=== PATIENT | female | born 1960 | race Caucasian/White ===

== ENCOUNTER 2016-10-16 07:36 | Observation (INO) | payer OTHER ==
[~2016-10-16] VITALS: Ht 177.8 cm; Wt 85.3 kg
[2016-10-16] VITALS (15 sets, daily range): BP systolic 136–158; BP diastolic 72–81
[~2016-10-16 07:36] MED LIST: ALBUTEROL2 PUFFS/17 IN; ANTIBIOTIC UNKNOWN PO; BENZONATATE100 MG PO; CYCLOBENZ5 MG PO; DITROPAN 5MG TAB5 MG PO; FLEXERIL10 MG PO; NAPROXEN SODIU500 MG PO; NOMEDS *; SYNTHROID 0.0.125 MG PO; TYLENOL WITH CO1 TA1 PO; VOLTAREN50 MG PO
--- NOTE | 2016-10-16 12:08 | Anesthesia Record ---
Anesthesia Record Part I Total IV fluids: 1700 EBL (ml): 20 Urine Output: 0 B/P: 141/86 % SaO2: 98 Pulse: 88 Resps: 16 Temp: 97 Patient is: Drowsy, Nasal O2, Oral/nasal airway, Stable Stable to PACU at: 1200 at 1208
--- NOTE | 2016-10-16 12:09 | Anesthesia Record ---
Anesthesia Record Part II Discharge time: 1230 Destination: Second Floor PACU nurse assessment review? Yes Patient is: Stable Anesthesia complications? No at 1205
--- NOTE | 2016-10-16 13:10 | Operative Note ---
Thyroidectomy Date of procedure: 10/16/16 Surgeon: Serjio Whittington Preoperative diagnosis: 1. Left thyroid neoplasm 2. thyroiditis 3. Hypothyroidism Postoperative diagnosis: same Procedure performed: 1. Total left thyroid lobectomy 2. Removal of enlarged pyradimal lobe Anesthesia: General Description of procedure: The neck was prepped and draped. A minimally invasive thyroid incision was marked out, a nerve monitoring endotracheal tube was used. The markuut was incised and flaps were elevated. The sternomastoid muscles were identified on each side the strap muscles were identified and the strap muscles were divided. And retracted. There was some minimal nodularity in the RIGHT lobe of thyroid. There was a large 1.6 cm nodule in the LEFT lobe of thyroid. Dissection was commenced on the LEFT side. The superior vascular pedicle was mobilized doubly ligated and divided. The LEFT middle thyroid vein was divided. The LEFT inferior thyroid artery was identified as was the LEFT recurrent laryngeal nerve. The nerve was followed through to where it entered the larynx and stimulated on the positive fashion on several occasions. The LEFT inferior thyroid artery was doubly ligated and divided. The LEFT lobe was then from the trachea, Leigh's ligament was divided, and the isthmus was mobilized. There was a large pyramidal lobe it was mobilized and the vascular components were ligated superiorly. The LEFT lobe isthmus and pyramidal lobe were all carried incontinuity and submitted for frozen section analysis. 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 I should note that the the LEFT superior parathyroid gland was thought to be identified and it was biopsied but the pathologist reported adipose tissue. Accordingly the tissue was removed was not reimplanted. The wound was thoroughly irrigated all bleeding was stopped the strap muscles were repaired with 2-0 Vicryl a 10 mm Partha-Menendez drain was placed to suction. The subcutaneous layer, platysma were closed with 2-0 Vicryl. The skin was sealed with Dermabond. The drain was hooked to suction. Dressings were applied and the patient was sent to recovery in good general condition... EBL (ml): 8 at 1310
--- NOTE | 2016-10-16 16:28 | PHARMACY CLINIC NOTE ---
Patient Demographics Patient Demographics Admission date: 10/16/16 Date: 10/16/16 Time: 1628 Allergies Coded Allergies: prednisolone (Intermediate, I-HIVES 10/16/16) prednisone (Mild, 10/16/16) HEIGHT- FT: 5 IN: 10.00 K.333 VTE General Information Disclaimer The following section includes nursing documentation that has been pulled in for pharmacy review. VTE prophylaxis NQF [id number] VTE prophylaxis ordered? Yes Type of prophylaxis/treatment: KENZIE at 4860
--- OUTSIDE RECORDS SUMMARY | 2016-10-16 17:24 | External Medical Summary Rpt ---
Author Author [facility] Gonzalez, [employer] Address Unknown Phone Unavailable Results Calcium [Mass/volume] in Serum or Plasma Observa Value Referen Units Interpr Notes Date tion ce etation Range Calcium 8.5 - mg/dL Normal No Sep 03 [Mass/vol 10.1 informati 2016 2:34 ume] in on in PM Serum or source Plasma data Thyroxine (T4) free [Mass/volume] in Serum or Plasma Observa Value Referen Units Interpr Notes Date tion ce etation Range Thyroxine 0.76 - ng/dL Normal No Sep 03 (T4) 1.46 informati 2016 2:34 free on in PM [Mass/vol source ume] in data Serum or Plasma Thyrotropin [Units/volume] in Serum or Plasma Observa Value Referen Units Interpr Notes Date tion ce etation Range Thyrotrop 0.358 - uIU/ml No No Sep 03 in 3.740 informati informati 2016 2:34 [Units/vo on in on in PM lume] in source source Serum or data data Plasma Comprehensive metabolic 2000 panel in Serum or Plasma Observa Value Referen Units Interpr Notes Date tion ce etation Range Albumin/G 1.1 - 1.8 No Normal No August 01 lobulin informati informati 2016 8:40 [Mass on in on in AM ratio] in source source Serum or data data Plasma Albumin 3.4 - 5.0 gm/dL Normal No August 01 [Mass/vol informati 2016 8:40 ume] in on in AM Serum or source Plasma data Alkaline 46 - 116 U/L Normal No August 01 phosphata informati 2016 8:40 se on in AM [Enzymati source c data activity/ volume] in Serum or Plasma Bilirubin 0.2 - 1.0 mg/dL Normal No August 01 .total informati 2016 8:40 [Mass/vol on in AM ume] in source Serum or data Plasma Urea 7 - 18 mg/dL Normal No August 01 nitrogen informati 2016 8:40 [Mass/vol on in AM ume] in source Serum or data Plasma Calcium 8.5 - mg/dL Normal No August 01 [Mass/vol 10.1 informati 2016 8:40 ume] in on in AM Serum or source Plasma data Chloride 98 - 107 mmoL/L High No August 01 [Moles/vo informati 2016 8:40 lume] in on in AM Serum or source Plasma data Carbon 21.0 - mmoL/L Normal No August 01 dioxide, 32.0 informati 2016 8:40 total on in AM [Moles/vo source lume] in data Serum or Plasma Creatinin 0.55 - mg/dL Normal No August 01 e 1.02 informati 2016 8:40 [Mass/vol on in AM ume] in source Serum or data Plasma Estimated 59- ML/MIN No REFERENCE August 01 informati RANGE: 2017 8:40 glomerula on in >60 AM r source ML/MIN/1. filtratio data 73 SQUARE n rate METERSIf (GF this patient is -A merican, then multiply theresult by 1.210. Globulin 1.3 - 3.2 gm/dL Normal No August 01 [Mass/vol informati 2016 8:40 ume] in on in AM Serum source data Glucose 74 - 106 mg/dL Normal No August 01 [Mass/vol informati 2016 8:40 ume] in on in AM Serum or source Plasma data Potassium 3.5 - 5.1 mmoL/L Normal August 01 informati 2016 8:40 [Moles/vo on in AM lume] in source Serum or data Plasma Sodium 136 - 145 mmoL/L High No August 01 [Moles/vo informati 2016 8:40 lume] in on in AM Serum or source Plasma data Aspartate 15 - 37 U/L Low No August 01 informati 2016 8:40 aminotran on in AM sferase source [Enzymati data c activity/ volume] in Serum or Plasma Alanine 12 - 78 U/L Normal No August 01 aminotran informati 2016 8:40 sferase on in AM [Enzymati source c data activity/ volume] in Serum or Plasma Protein 6.4 - 8.2 gm/dL Normal No August 01 [Mass/vol informati 2016 8:40 ume] in on in AM Serum or source Plasma data Lipid 1996 panel in Serum or Plasma Observa Value Referen Units Interpr Notes Date tion ce etation Range Cholester < 200 mg/dL No No August 01 ol informati informati 2016 8:40 [Moles/vo on in on in AM lume] in source source Unspecifi data data ed specimen Cholester 40 - 60 MG/DL Normal No August 01 ol in HDL inform2016 8:40 on in AM [Mass/vol source ume] in data Serum or Plasma Cholester 0 - 130 mg/dL Normal No August 01 ol in LDL inform2016 8:40 on in AM [Mass/vol source ume] in data Serum or Plasma by calculati on Triglycer 30 - 200 mg/dL Normal No August 01 marco informati 2016 8:40 [Moles/vo on in AM lume] in source Serum or data Plasma Cholester 0 - 40 No Normal No August 01 ol in informati informati 2016 8:40 VLDL on in on in AM [Mass/vol source source ume] in data data Serum or Plasma Thyrotropin [Units/volume] in Serum or Plasma Observa Value Referen Units Interpr Notes Date tion ce etation Range Thyrotrop 0.358 - uIU/ml High No August 01 in 3.740 informati 2016 8:40 [Units/vo on in AM lume] in source Serum or data Plasma CBC W Auto Differential panel in Blood Observa Value Referen Units Interpr Notes Date tion ce etation Range Basophils 0 - 0.2 K/MM3 Normal No August 012016 8:40 [#/volume on in AM ] in source Blood by data Automated count Basophils 0.1 - 2.0 % Normal No August 01 informati 2016 8:40 leukocyte on in AM s in source Blood by data Automated count Eosinophi 0.0 - 0.4 K/mm3 Normal No August 01 ls informati 2016 8:40 [#/volume on in AM ] in source Blood by data Automated count Eosinophi 0.1 - % Normal No August 01 ls/100 12.0 informati 2016 8:40 leukocyte on in AM s in source Blood by data Automated count Granulocy 1.8 - 7.8 K/mm3 Normal No August 01 earl informati 2016 8:40 [#/volume on in AM ] in source Blood by data Automated count Granulocy 37.0 - % Normal No August 01 earl/100 80.0 informati 2016 8:40 leukocyte on in AM s in source Blood by data Automated count Hematocri 37.0 - % Normal No August 01 t [Volume 47.0 informati 2016 8:40 on in AM Fraction] source of Blood data Hemoglobi 12.2 - g/dL Normal No August 01 n 16.2 informati 2016 8:40 [Mass/vol on in AM ume] in source Blood data Lymphocyt 0.7 - 4.5 K/mm3 Normal No August 01 es informati 2016 8:40 [#/volume on in AM ] in source Unspecifi data ed specimen by Automated count Lymphocyt 10 - 50.0 % Normal No August 01 es informati 2016 8:40 [#/volume on in AM ] in source Unspecifi data ed specimen by Automated count Erythrocy 27 - 31.2 pg High No August 01 te mean informati 2016 8:40 corpuscul on in AM ar source hemoglobi data n [Entitic mass] Erythrocy 31.8 - g/dl Normal No August 01 te mean 35.4 informati 2016 8:40 corpuscul on in AM ar source hemoglobi data n concentra tion [Mass/vol ume] by Automated count Erythrocy 82.2 - fl High No August 01 te mean 97.8 informati 2016 8:40 corpuscul on in AM ar volume source [Entitic data volume] by Automated count Monocytes 0.1 - 1.0 K/mm3 Normal No August 01 informati 2016 8:40 [#/volume on in AM ] in source Blood by data Automated count Monocytes 1.7 - 9.3 % Normal No August 01 /100 informati 2016 8:40 leukocyte on in AM s in source Blood by data Automated count Platelet 7.4 - fl Low No August 01 mean 10.4 informati 2017 8:40 volume on in AM [Entitic source volume] data in Blood by Automated count Platelets 142 - 424 K/mm3 Normal No August 01 informati 2016 8:40 [#/volume on in AM ] in source Blood data Erythrocy 4.2 - 5.4 M/mm3 Normal No August 01 earl informati 2016 8:40 [#/volume on in AM ] in source Amniotic data fluid Erythrocy 11.5 - % Normal No August 01 te 17.5 informati 2016 8:40 distribut on in AM ion width source [Entitic data volume] by Automated count Leukocyte 4.8 - K/MM3 Normal No August 01 s 10.8 informati 2017 8:40 [#/volume on in AM ] in source Blood data
--- OUTSIDE RECORDS SUMMARY | 2016-10-16 17:24 | External Medical Summary Rpt ---
Author Author [employer] Organization [employer] Address Unknown Phone Unavailable Purpose Continuity of Care Document - through 2016
--- OUTSIDE RECORDS SUMMARY | 2016-10-16 17:24 | External Medical Summary Rpt ---
Demographics Preferred Language Nepali Marital Status Unknown Protestant Affiliation Unknown Race Unknown Ethnic Group Unknown Author Author [facility] Address Unknown Phone Immunization No patient found.
--- OUTSIDE RECORDS SUMMARY | 2016-10-16 17:24 | External Medical Summary Rpt ---
Author Author [facility] Address Unknown Phone [email or web address] Purpose Continuity of Care Document - 08-01-2016 through 2016 Problems Code Diagnosis DOS Provider Status B34.9 VIRAL INFECTION, UNSPECIFIED E86.0 DEHYDRATION M62.830 MUSCLE SPASM OF BACK Z53.20 PROC/TRTMT NOT CRD OUT BEC PT DECISION FOR UNSP REASONS
--- OUTSIDE RECORDS SUMMARY | 2016-10-16 17:24 | External Medical Summary Rpt ---
Demographics Preferred Language Welsh Marital Status Unknown Yarsanism Affiliation Unknown Race Unknown Ethnic Group Unknown Author Author C[facility]IDO Address Unknown Phone Immunization No patient found.
--- OUTSIDE RECORDS SUMMARY | 2016-10-16 17:24 | External Medical Summary Rpt ---
Author Author CANDIDO Address Unknown Phone [email or web address] Purpose Continuity of Care Document - 08-01-2016 through 2016 Problems Code Diagnosis DOS Provider Status B34.9 VIRAL INFECTION, UNSPECIFIED E86.0 DEHYDRATION M62.830 MUSCLE SPASM OF BACK Z53.20 PROC/TRTMT NOT CRD OUT BEC PT DECISION FOR UNSP REASONS
[2016-10-17 00:31] VITALS: BP 119/71
[2016-10-17 04:27] VITALS: BP 150/82
[2016-10-17 08:00] VITALS: BP 136/71
[2016-10-17 10:00] VITALS: BP 132/67
--- NOTE | 2016-10-29 12:56 | DISCHARGE SUMMARY STANDARD ---
Discharge Summary ([facility]2) Date of admission: 10/16/16 Date of discharge: 10/17/16 Problem List: 1. Thyroid neoplasm History of present illness: Patient diagnosed with thyroid neoplasm and hypothyroidism. Follicular neoplasm thyroid. Total LEFT thyroid lobectomy performed Hospital Course: Surgery performed on October 16 2016, discharged home with thyroidectomy instructions on October 17, 2016. Discharge medications: Continue taking these medications: Levothyroxine Sodium (Synthroid 0.125MG) 125 MCG TABLET 0.125 MILLIGRAM ORAL DAILY Oxybutynin Chloride (Ditropan 5MG Tab) 5 MG TABLET 5 MILLIGRAM ORAL THREE TIMES A DAY Start taking the following new medications: HYDROCODONE/ACETAMINOPHEN (Reno 5-325 Tablet) 1 EACH TABLET 1 TABLET ORAL EVERY 6 HOURS NEEDED as needed for PAIN Qty = 30 No Refills Levothyroxine Sod (Synthroid) 150 MCG TABLET 0.15 MILLIGRAM NASOGASTRIC TUBE DAILY Days = 30 Refills = 3 CALCIUM CARBONATE/VITAMIN D3 (Caltrate 600 + D Tablet) 1 EACH TABLET 1 TABLET ORAL THREE TIMES A DAY Days = 14 No Refills Disposition: Home. To follow-up in one week at 2583
--- NOTE | 2016-10-29 12:56 | DISCHARGE SUMMARY STANDARD ---
Discharge Summary ([facility]2) Date of admission: 10/16/16 Date of discharge: 10/17/16 Problem List: 1. Thyroid neoplasm History of present illness: Patient diagnosed with thyroid neoplasm and hypothyroidism. Follicular neoplasm thyroid. Total LEFT thyroid lobectomy performed Hospital Course: Surgery performed on October 16 2016, discharged home with thyroidectomy instructions on October 17, 2016. Discharge medications: Continue taking these medications: Levothyroxine Sodium (Synthroid 0.125MG) 125 MCG TABLET 0.125 MILLIGRAM ORAL DAILY Oxybutynin Chloride (Ditropan 5MG Tab) 5 MG TABLET 5 MILLIGRAM ORAL THREE TIMES A DAY Start taking the following new medications: HYDROCODONE/ACETAMINOPHEN (Krypton 5-325 Tablet) 1 EACH TABLET 1 TABLET ORAL EVERY 6 HOURS NEEDED as needed for PAIN Qty = 30 No Refills Levothyroxine Sod (Synthroid) 150 MCG TABLET 0.15 MILLIGRAM NASOGASTRIC TUBE DAILY Days = 30 Refills = 3 CALCIUM CARBONATE/VITAMIN D3 (Caltrate 600 + D Tablet) 1 EACH TABLET 1 TABLET ORAL THREE TIMES A DAY Days = 14 No Refills Disposition: Home. To follow-up in one week at 7852
== END 2016-10-17 11:28 | disposition home or self-care (01) ==
LOC: SDC 07:36 → 2ND 07:40 → SDC 09:15 → 2ND 12:49
PROVIDERS: Otolaryngology
PROC: 0GTG0ZZ Resection of Left Thyroid Gland Lobe, Open Approach (ICD-10-PCS; principal; 2016-10-16 09:15)
DX: D34 Benign neoplasm of thyroid gland (principal); E04.1 Nontoxic single thyroid nodule; E03.8 Other specified hypothyroidism
CPT/HCPCS: G0378; J0330; J2405

== ENCOUNTER → 2016-11-25 | Outpatient (CLI) | payer OTHER | LOC: LAB 14:41 | DX: E03.9 Hypothyroidism, unspecified (principal) ==

== ENCOUNTER 2016-12-19 08:47 | Day surgery (SDC) | payer OTHER ==
[~2016-12-19] VITALS: Ht 177.8 cm; Wt 90.3 kg
[2016-12-19 08:55] VITALS: BP 122/78
[2016-12-19 09:11] VITALS: BP 122/78
[2016-12-19 09:13] VITALS: BP 146/84
--- NOTE | 2016-12-19 09:16 | Procedure Note ---
Procedure detail Date of procedure: 12/19/16 Anesthesiologist: Aden Glover MD Complications: None Pre-procedure diagnosis: Degenerative disc disease, lumbar radiculopathy, lumbar spondylosis Post-procedure diagnosis: same Indications for procedure: This patient is a pleasant 56-year-old white female who we've been treating for low back pain with lumbar radiculopathy symptoms and facet arthropathy. She has increasing low back pain with radiation down LEFT leg. We will do a first lumbar epidural steroid injection today to see if this will give her some relief. Procedure detail: Procedure: Lumbar epidural steroid injection under fluoroscopy Informed consent was obtained and the risks and benefits of the procedure were explained to the patient. The patient was taken to the procedure room and noninvasive monitors placed, including noninvasive blood pressure cuff and pulse oximeter. The back was viewed using C-arm Fluoroscopy and prepped using Betadine as a cleansing solution and the L4-L5 interspace was palpated. Skin and subcutaneous tissues were anesthetized using lidocaine 1.5% and a 25-gauge needle. After this, an 18-gauge Touhy epidural needle was placed into the L4-L5 interspace and advanced using fluoroscopic guidance and loss of resistance to air until the epidural space was encountered. After confirmation of needle placement in the epidural space, with dye, a solution containing lidocaine 1.5%, 4 mL and Depo-Medrol 80 mg were incrementally injected into the lumbar epidural space. The patient tolerated the procedure well with no complications. The patient was observed in the Pain Clinic and then discharged home neurologically intact. Plan and disposition: We will follow up with her in 2 weeks. We'll reevaluate her symptoms at that time. at 0916
[2016-12-19 09:23] VITALS: BP 149/82
== END 2016-12-19 09:24 ==
LOC: PM 08:47
PROC: 3E0R3BZ Introduction of Anesthetic Agent into Spinal Canal, Percutaneous Approach (ICD-10-PCS; principal; 2016-12-19)
PROC: 3E0R33Z Introduction of Anti-inflammatory into Spinal Canal, Percutaneous Approach (ICD-10-PCS; 2016-12-19)
DX: M51.16 Intervertebral disc disorders with radiculopathy, lumbar region (principal); M47.896 Other spondylosis, lumbar region
CPT/HCPCS: J1040; Q9966